=== PATIENT | male | born 1990 | race Caucasian/White ===

== ENCOUNTER 2018-05-12 23:38 | Emergency (ER) | payer OTHER ==
[~2018-05-12] VITALS: Ht 175.3 cm; Wt 83.9 kg
[2018-05-13] MEDS ORDERED: HYDROCODONE-AP1 EA11 PO (00:13)
[2018-05-13] MEDS ORDERED: TORADOL 10 MG T10 MG PO ×2 (00:13→01:09)
[2018-05-13] MEDS ORDERED: HYDROCODON-ACE1 EAC8 PO (01:09)
[2018-05-13 01:20] VITALS: BP 116/67
[2018-05-13] MEDS ORDERED: KEFLEX500 M1 PO (01:24)
== END 2018-05-13 01:20 | disposition home or self-care (01) ==
LOC: M.ERS 23:38
DX: T23.202A Burn of second degree of left hand, unspecified site, initial encounter (principal); T31.0 Burns involving less than 10% of body surface; F17.210 Nicotine dependence, cigarettes, uncomplicated; Z88.0 Allergy status to penicillin; W39.XXXA Discharge of firework, initial encounter; Y93.89 Activity, other specified; Y92.89 Other specified places as the place of occurrence of the external cause; Y99.8 Other external cause status